=== PATIENT | male | born 1940 | race Caucasian/White ===

== ENCOUNTER 2016-11-19 08:04 | Inpatient (IN) | payer OTHER ==
[2016-10-25 09:07] VITALS: BMI 43.0
--- NOTE | 2016-11-10 13:34 | HISTORY & PHYSICAL EXAMINATION ---
DATE OF ADMISSION: 11/19/2016 SUBJECTIVE CHIEF COMPLAINT: The patient is a 76-year-old male who presents with left knee pain. He states that the symptoms have been chronic and nontraumatic in nature. The pain occurs constantly and described as aching, sharp and throbbing. The patient has failed conservative measures including cortisone injections, anti-inflammatories and physical therapy. He was scheduled for a left total knee arthroplasty with Dr. Harvey and would like to transfer care. 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 PAST SURGICAL HISTORY: Appendectomy, right total hip arthroplasty, left total hip arthroplasty, brain tumor. SOCIAL HISTORY: Denies alcohol use. Denies smoking or tobacco use. Denies IV or illegal drug use. He lives in a 2-story house. He is currently retired. FAMILY HISTORY: Noncontributory. ALLERGIES: No known drug allergies. MEDICATIONS: Norvasc 5 mg 1 tablet daily, Cardura 8 mg 1 tab daily, Lasix 40 mg 1 tab daily, naproxen 500 mg 1 tab 2 times a day, Detrol 2 mg 1 capsule daily, Lopressor, HCT 50 mg/25 mg 1 tablet daily, calcium 600 mg 1 tab daily, glucosamine chondroitin, Aspirin 81 mg 1 tablet daily, Travatan 0.004% eyedrops, instill 1 drop into affected eyes in the evening, vitamin B12, stool softener as needed, vitamin D3 2000 units daily. REVIEW OF SYSTEMS: He denies headaches, fevers, chills, double vision, blurry vision, sore throat, cough, chest pain, nausea, vomiting, diarrhea, constipation, numbness or tingling, tired, difficulty going to the bathroom, thoughts to harm herself or harm others or depression. He is positive for joint pain and joint stiffness of his left knee. OBJECTIVE: GENERAL APPEARANCE: The patient is a 76-year-old male who is sitting in no acute distress. He is well dressed, well nourished. He is awake, alert and oriented x3. VITAL SIGNS: He is 5 feet 8 inches tall, 279 pounds, blood pressure 130/84. HEAD, EYES, EARS, NOSE, AND THROAT: Normocephalic, atraumatic. Extraocular movements are intact. PERRLA. Mucosa was moist. No septal deviation. NECK: Supple with no lymphadenopathy, no JVD, no thyromegaly. HEART: Regular rate and rhythm with no murmurs or gallops. LUNGS: Clear to auscultation. No wheezing or rhonchi. ABDOMEN: Soft, nontender, nondistended. Normal bowel sounds, no hepatosplenomegaly. EXTREMITIES: Paying particular attention to the left lower extremity. He is able to extend his knee to 0 degrees and flex his knee to 110 degrees. He does have medial joint line tenderness. His ligaments are intact. NEUROLOGIC EXAMINATION: Cranial nerves II-XII were intact. Pulses were compared bilaterally and were equal. IMAGING: Four view x-rays demonstrate bone on bone with medial compartment with osteophyte formation and subchondral sclerosis. IMPRESSION: Left knee degenerative joint disease. PLAN: The patient is scheduled for a left total knee arthroplasty. The patient has failed conservative therapies including cortisone injections, anti-inflammatories and physical therapy. He would like to proceed with a left total knee arthroplasty. Risks and benefits were discussed with the patient and included but not limited to infection, DVT, pain, stiffness, need for revision surgeries, damage to blood vessels, damage to nerves, PE, and anesthesia risks were all discussed with the patient and he wishes to proceed. All questions were answered to his satisfaction. DVT prophylaxis will be aspirin 81 mg twice a day. He would like to go home with home health after his surgery. BENOIT
[2016-11-19] VITALS (8 sets, daily range): BP systolic 101–172; BP diastolic 63–95; PULSE 57–82; TEMP 36.2–36.7; O2SAT 95–99; Ht 170.2 cm; Wt 127.0 kg
[~2016-11-19] VITALS: Ht 170.2 cm; Wt 127.0 kg
[2016-11-19] MEDS: TRANEXAMIC ACID INJ 1,000 MG in SODIUM CHLORIDE 0.9% 100ML 100 ML IV SCH ×2 (06:30→10:45)
[~2016-11-19 08:04] MED LIST: AMLO-114 PO; ASPI-232 PO; BUPIVACAINE 0.25% 30 ML VIAL ONE; BUPIVACAINE 0.5 % 5 MG/1 ML PF 10ML VIAL ONE; CEFAZOLIN 3000 MG/65 ML D5W IV SCH; CLC100 PO; CLTP PO; CRD4 PO; CYAN500T PO; CeleBREX 200 MG CAP PO SCH; DEXAMETHASONE 4 MG TAB PO SCH; DTRSR4 PO; FAMOTIDINE 20 MG TAB PO SCH; FRS/40 PO; GABAPENTIN 300 MG CAP PO SCH; GLUCOSAMINE/CHOND PO; LACTATED RINGER'S 1000ML 1,000 ML IV SCH; LACTATED RINGER'S 1000ML 500 ML IV ONE; METO25TA56 PO; METOCLOPRAMIDE HCL 10 MG TAB PO SCH; NAPR500T3 PO; TRVOPS OPB; VITAMIN D PO
[2016-11-19] MEDS ORDERED: HYDROmorphone INJ 1 MG/ML SYR IV PRN (08:45)
[2016-11-19] MEDS ORDERED: PROMETHAZINE HCL INJ 12.5 MG in SODIUM CHLORIDE 0.9% 50ML 50 ML IV PRN (08:45)
[2016-11-19] MEDS ORDERED: ONDANSETRON INJ 2 MG/ML 2 ML VIAL IV PRN ×2 (08:45→13:30)
[2016-11-19] MEDS ORDERED: EpHEDrine SULFATE INJ 50 MG/ML AMP IV PRN (08:45)
[2016-11-19] MEDS ORDERED: ATROPINE SULFATE 0.1 MG/ML 5ML SYR IV PRN (08:45)
[2016-11-19] MEDS ORDERED: FENTANYL CITRATE INJ 50 MCG/1 ML 2 ML VIAL IV PRN (08:45)
[2016-11-19] MEDS ORDERED: PROPOFOL IV EMULSION 10 MG/ML 20 ML VIAL IV ONE (09:43)
[2016-11-19] MEDS ORDERED: FENTANYL CITRATE INJ 50 MCG/1 ML 2 ML VIAL ONE (09:43)
[2016-11-19] MEDS ORDERED: MIDAZOLAM HCL 1 MG/ML 2ML VIAL ONE (09:43)
--- NOTE | 2016-11-19 10:04 | History & Physical Bridge Note ---
H&P Re-Evaluation Bridge Note: I have examined the patient, reviewed the History & Physical and in the interval since the performance of the History & Physical I have noted the following changes of clinical significance: No changes noted
[2016-11-19] MEDS ORDERED: CeleBREX 200 MG CAP ONE (10:13)
[2016-11-19] MEDS ORDERED: GABAPENTIN 300 MG CAP PO ONE (10:13)
[2016-11-19] MEDS ORDERED: METOCLOPRAMIDE HCL 10 MG TAB PO ONE (10:13)
[2016-11-19] MEDS ORDERED: FAMOTIDINE 20 MG TAB ONE (10:13)
[2016-11-19] MEDS ORDERED: DEXAMETHASONE 4 MG TAB ONE (10:13)
[2016-11-19] MEDS ORDERED: CEFAZOLIN IV 3,000 MG/65 ML D5W IV ONE (10:14)
[2016-11-19] MEDS ORDERED: ROPIVACAINE 5MG/ML 30 ML 150 MG, BUPIVACAINE/EPINEPHR 0.5% MPF 30 ML, KETOROLAC TROMETH... INFIL SCH ×7 (10:30)
[2016-11-19] MEDS ORDERED: POVIDONE-IODINE OP SOLN 30 ML BTL ONE (10:35)
[2016-11-19] MEDS ORDERED: BACITRACIN 50000 UNIT VIAL ONE (10:35)
[2016-11-19] MEDS ORDERED: DiphenhydrAMINE HCL 50 MG/ML VIAL IV PRN (13:30)
[2016-11-19] MEDS ORDERED: SOD PHOSPHATE/SOD BIPHOSPHATE ENEMA 132 ML BTL PR PRN (13:30)
[2016-11-19] MEDS ORDERED: BISACODYL 10 MG SUPP PR PRN (13:30)
[2016-11-19] MEDS ORDERED: MAGNESIUM HYDROXIDE SUSP 30 ML UDC PO PRN (13:30)
[2016-11-19] MEDS ORDERED: ALUMINUM/MAGNESIUM/SIMETH (MAALOX MAX) 30 ML UDC PO PRN (13:30)
[2016-11-19] MEDS ORDERED: ZOLPIDEM TARTRATE 5 MG TAB PO PRN (13:30)
[2016-11-19] MEDS ORDERED: OXYSR10 PO (13:56)
[2016-11-19] MEDS ORDERED: RXC5 PO (13:56)
--- NOTE | 2016-11-19 13:58 | Anesthesiology Progress Note ---
Anesthesia Post Op Note Date & Time Nov 19, 2016 at 13:58 Vital Signs Pain Intensity: 0 Vital Signs Past 12 Hours Date Time Temp Pulse Resp B/P (MAP) Pulse Ox O2 Delivery O2 Flow Rate FiO2 11/19/16 13:50 58 20 159/87 98 Nasal Cannula 2 11/19/16 13:40 66 20 129/87 98 2 11/19/16 13:30 71 20 135/82 98 Oxymask 6 11/19/16 13:24 37.1 71 20 138/76 98 Oxymask 6 11/19/16 08:42 36.7 82 20 172/95 96 Room Air Notes Mental Status: alert / awake / arousable, participated in evaluation Pt Amnestic to Procedure: Yes Nausea / Vomiting: adequately controlled Pain: adequately controlled Airway Patency, RR, SpO2: stable & adequate BP & HR: stable & adequate Hydration State: stable & adequate Neuraxial Anesthesia: was administered, sensory block is resolving Anesthetic Complications: no major complications apparent Doing well. Pain well controlled. VSS
--- NOTE | 2016-11-19 13:58 | DIAGNOSTIC IMAGING REPORT ---
LEFT KNEE 1 OR 2 VIEWS ROUTINE HISTORY: 76 years-old Male AP/LATERAL IN PACU LEFT KNEE left knee total joint arthroplasty COMPARISON: None available TECHNIQUE: Portable AP and crosstable lateral views of the left knee FINDINGS: There has been interval left total knee arthroplasty with patellar resurfacing. No evidence of periprosthetic fracture or malalignment. Expected deep tissue air and soft tissue swelling seen about the knee. Vascular calcifications are noted. IMPRESSION: Left total knee arthroplasty and patellar resurfacing without complication identified. The above report was generated using voice recognition software. It may contain grammatical, syntax or spelling errors. Electronically signed by: Manuel Carpio M.D. 11/19/2016 1:56 PM Dictated Date/Time: 11/19/2016 1:55 PM
[2016-11-19] MEDS: D5W AND 1/2NSS + 20MEQ KCL 1,000 ML IV SCH (15:28)
--- NOTE | 2016-11-19 17:33 | [facility] Operative Report ---
Operative Report Operative Date Nov 19, 2016. Pre-Operative Diagnosis Left knee degenerative joint disease Post-Operative Diagnosis Left knee degenerative joint disease Procedure(s) Performed Left Total Knee Arthroplasty Surgeon Dr. Antoni Guzman Laborer Livestock Surgeon(s) Abi Prieto Pa-C Estimated Blood Loss 100 ml Findings As above Specimens a. left knee bone and tissue Drains none Anesthesia spinal Complication(s) None Disposition Recovery Room / PACU Indications 76-year-old male with long-standing degenerative joint disease left knee. Bone- on-bone medial compartment. His fell conservative measures including injection and anti-inflammatories. He wishes to proceed with left total knee arthroplasty. Description of Procedure Risks benefits and alternatives of surgery including but not limited to infection DVT pain stiffness need for surgery damage to blood vessels damage to nerves or risks of anesthesia were discussed with the patient and she wished to proceed. Patient was identified in the laterality was confirmed and marked. She received a preoperative antibiotic is also a spinal anesthetic and a abductor canal block. A well-padded tourniquet was applied and then the limb was prepped and draped in standard manner with ChloraPrep. The limb was exsanguinated and the tourniquet was inflated. I made a standard anterior incision. I sharply incised the skin then utilized Bovie electrocautery as well as the aqua mantis to achieve hemostasis. I made a medial parapatellar arthrotomy immobilized the patella laterally. I then excised the anterior horns of the medial and lateral meniscus as well as the infrapatellar fat pad. I elevated a portion of the MCL off of the tibia. I then pinned into place a patient-matched distal femoral cutting guide and made my distal femoral resection. I then pinned into place a size 8 5 in 1 cutting guide. I made my anterior, posterior and chamfer cuts. I then excised the cruciates and the remaining portions of the menisci. I then pinned into place a patient- matched tibial cutting guide and made my tibial resection. I then pinned into place a size 7 tibia utilizing alignment rods to confirm rotation. I then cut for the post. Utilizing a lamina director translation and then removed posterior osteophytes off the femur. I then placed a trial femur into position and cut for the trochlear component. I then sequentially trialed to size [9] polyethylene. There was good soft tissue balancing and range of motion with this polyethylene. I then prepared the patella with a freehand cut utilizing sagittal saw. I sized and drilled for a size 38 patella. There was good tracking to the patella no lateral release was needed. All the trial components were removed. The deep tissues were anesthetized with and ortho mix solution. Then with Simplex HV with gentamicin cement I cemented my definitive components. Definitive components, Cardona and Nephew Journey 2: Femur 8 Tibia 7 Poly 9 Patella 38 oval Betadine soak was performed. A deep drain was placed. The arthrotomy was closed with interrupted #1 Vicryl suture subcutaneous tissue was closed with interrupted 2-0 Vicryl suture and skin with anthony. Sterile dressings applied and the tourniquet was released. All needle and sponge counts were correct at the end of the procedure patient was transferred to the PACU in stable condition without apparent complication. The PA-C was necessary for assistance with procedure for assistance in positioning, prepping, draping, retraction and closure. I attest to the content of the Intraoperative Record and any orders documented therein. Any exceptions are noted below.
[2016-11-19] MEDS: KETOROLAC TROMETHAMINE 15 MG/ML VIAL IV. SCH ×2 (17:38→23:30)
[2016-11-19] MEDS: CEFAZOLIN IV 3,000 MG in DEXTROSE 5% 50ML 50 ML IV SCH (19:44)
[2016-11-19] MEDS: CALCIUM 600MG + VIT D 400 IU TAB PO SCH (20:50)
[2016-11-19] MEDS: METOPROLOL TARTRATE 25 MG TAB PO SCH (20:50)
[2016-11-19] MEDS: ASPIRIN 81 MG ECTAB PO SCH (20:51)
[2016-11-19] MEDS: SENNA 8.6 MG TAB PO SCH (20:51)
[2016-11-19] MEDS: ACETAMINOPHEN 500 MG TAB PO SCH (21:31)
[2016-11-20] VITALS (7 sets, daily range): BP systolic 113–153; BP diastolic 69–84; PULSE 47–60; TEMP 36.5–36.6; O2SAT 96–98
[2016-11-20] MEDS: D5W AND 1/2NSS + 20MEQ KCL 1,000 ML IV SCH ×2 (02:08→11:20)
[2016-11-20] MEDS: CEFAZOLIN IV 3,000 MG in DEXTROSE 5% 50ML 50 ML IV SCH (04:12)
[2016-11-20] MEDS: ACETAMINOPHEN 500 MG TAB PO SCH ×3 (05:46→20:49)
[2016-11-20] MEDS: KETOROLAC TROMETHAMINE 15 MG/ML VIAL IV. SCH ×2 (05:46→11:20)
[2016-11-20 06:07] LABS: HEMATOCRIT 38.9 % (42-52); MEAN CORPUSCULAR HEMOGLOBIN 29.3 pg (25-34); MEAN CORPUSCULAR HGB CONC 33.7 g/dl (32-36); MEAN PLATELET VOLUME 10.3 fL (7.4-10.4); PLATELET COUNT 139 K/uL (130-400); RED BLOOD COUNT 4.47 M/uL (4.7-6.1); WHITE BLOOD COUNT 15.19 K/uL (4.8-10.8)
[2016-11-20 06:45] LABS: BUN/CREATININE RATIO 21.9 (10-20); CALCIUM 7.6 mg/dl (8.5-10.1); CREATININE 0.98 mg/dl (0.60-1.40); POTASSIUM 4.4 mmol/L (3.5-5.1)
[2016-11-20] MEDS ORDERED: DEXAMETHASONE 4 MG TAB PO SCH (07:30)
--- NOTE | 2016-11-20 07:48 | Orthopedic Progress Note ---
Orthopedic Progress Note Date of Service Nov 20, 2016. Subjective Post OP Day: 1 (s/p Left TKA) Reports: feeling well, pain controlled w PO medications, Denies: complaints, chest pain, SOB, nausea / vomiting, light headedness, calf pain Objective calves soft nontender, N/V intact, capillary refill less than 2 sec., dressing C /D/I, A&O x3, toes mobile Date Time Temp Pulse Resp B/P (MAP) Pulse Ox O2 Delivery O2 Flow Rate FiO2 11/20/16 07:39 36.5 49 20 128/74 (92) 96 Room Air 11/20/16 03:05 36.6 60 17 146/84 (104) 97 Room Air 11/19/16 23:30 Room Air 11/19/16 22:48 36.3 59 16 101/63 (76) 95 Room Air 11/19/16 20:49 60 118/75 (89) 11/19/16 19:35 97 Room Air 11/19/16 19:24 36.4 11/19/16 17:08 36.3 63 18 149/85 (106) 96 Nasal Cannula 2.0 11/19/16 15:20 Nasal Cannula 2.0 11/19/16 15:15 36.2 58 18 144/80 (101) 99 Nasal Cannula 2.0 11/19/16 14:45 57 18 154/89 (110) 99 Nasal Cannula 2.0 11/19/16 14:33 98 Nasal Cannula 2.0 11/19/16 14:00 58 20 152/79 98 Nasal Cannula 2 11/19/16 13:50 58 20 159/87 98 Nasal Cannula 2 11/19/16 13:40 66 20 129/87 98 2 11/19/16 13:30 71 20 135/82 98 Oxymask 6 11/19/16 13:24 37.1 71 20 138/76 98 Oxymask 6 11/19/16 08:42 36.7 82 20 172/95 96 Room Air Laboratory Results 24 Hours: Test 11/20/16 05:42 Hematocrit 38.9 % Hemoglobin 13.1 g/dL Assessment & Plan Assessment: POD #1 s/p Left TKA -PT/OT -dvt proph with elvira/scd/asa -plan for d/c home with HHPT when stable -labs stable Past Medical History: Significant for osteoarthritis, hypertension, stroke after brain surgery. Discharge Planning Discharge Planning: home with home health DVT Prophylaxis: TEDs, SCDs, ASA Therapy: Physical Therapy
[2016-11-20] MEDS ORDERED: CLB200 PO (08:48)
[2016-11-20] MEDS ORDERED: ACET-24 PO (08:48)
[2016-11-20] MEDS ORDERED: ONDA8TAB6 PO (08:48)
[2016-11-20] MEDS: OXYCODONE HCL IR 5 MG TAB (IMMEDIATE RELEASE) PO PRN ×2 (08:48→23:54)
[2016-11-20] MEDS ORDERED: ASPEC81 PO (08:48)
[2016-11-20] MEDS: ASPIRIN 81 MG ECTAB PO SCH ×2 (08:49→20:49)
--- NOTE | 2016-11-20 08:49 | Discharge Instructions ---
Discharge Instructions Date of Service Nov 20, 2016. Admission Reason for Admission: Left Knee Osteoarthritis Discharge Discharge Diagnosis / Problem: left total knee replacement Discharge Goals Goal(s): Decrease discomfort, Improve function, Increase independence Activity Recommendations Activity Limitations: as noted below Weightbearing Status: Left weightbearing (as tolerated) . Instructions / Follow-Up Instructions / Follow-Up ACTIVITY RECOMMENDATIONS: SELF CARE INSTRUCTIONS AFTER TOTAL KNEE REPLACEMENT A. You may need to continue a physical therapy program after discharge from the hospital. There are several options available to you. Your doctor will assist you in selecting the best one for you. 1. An out-patient facility 2 to 3 times a week for therapy or home therapy. 2. Continue working on all exercises taught to you in the hospital. Your goals should be to increase bending of your knee to 90 degrees and beyond and to fully straighten your knee. B. You may progress at your own pace from walking with a walker or crutches to a cane; then to no assistive devices. C. Make walking a part of your daily routine. Be up as much as comfortable with rest periods throughout the day. Rest with leg elevation is very important. Use the ice wrap frequently for the first 3-4 weeks. D. There are no restrictions on activities. You may ride in a car, shop, participate in insulation engineman and all social activities. E. Wear the long elastic stockings (RONALD hose) 20 hours a day for 2 weeks after surgery. They can be removed several times a day for laundering and for a bath. F. You may shower, no tub baths until cleared by your doctor. SPECIAL CARE INSTRUCTIONS: VERY IMPORTANT TO READ AND REVIEW A. There are a few signs you need to watch for after you are home. Call [facility] [place] if you notice any of the followin. Increased severe knee pain. Some pain is expected especially when you exercise. 2. Increased swelling in your leg or knee; pain or swelling of the calf muscle in either lower leg. 3. Any fluid drainage from the incision. 4. Shortness of breath or chest pain. B. Please call [facility] at if you have any concerns or questions about your operation or recovery. The doctor or his nurse will return your call promptly. C. You must take antibiotics before dental work, bladder, bowel or other surgery. Your doctor will provide you with a permanent care to carry describing this precaution. IMPORTANT: * REMEMBER TO TAKE ASPIRIN, 81 MG, TWICE DAILY FOR 4 WEEKS UNLESS OTHERWISE DIRECTED. THIS IS YOUR BLOOD THINNER. * HIGH RISK PATIENTS MAY BE PRESCRIBED A STRONGER BLOOD THINNER. THIS WILL BE PROVIDED AT DISCHARGE. * CALL IF INCREASED PAIN, REDNESS, DRAINAGE OR FEVER GREATER THAT 101. * WEAR RONALD HOSE 20 HOURS PER DAY FOR 2 WEEKS. * YOU MAY HAVE A LARGE BAND-AID LIKE DRESSING (SILVERON). THIS WILL REMAIN ON YOUR INCISION FOR 7 DAYS, THEN CAN BE REMOVED. IF INCISION IS LEAKING THROUGH DRESSING, CALL THE OFFICE . FOLLOW UP VISIT: If appointment is not already scheduled: Please call [facility] to make a follow-up appointment for 2 weeks after your surgery at . Current Hospital Diet Patient's current hospital diet: Regular Diet Discharge Diet Recommended Diet: Regular Diet Procedures Procedures Performed: Left Total Knee Arthroplasty Pending Studies Studies pending at discharge: no Medical Emergencies . Who to Call and When: Medical Emergencies: If at any time you feel your situation is an emergency, please call [phone] immediately. . Non-Emergent Contact Non-Emergency issues call your: Primary Care Provider . "Provider Documentation" section prepared by Chin Camacho. . VTE Core Measure Inpt VTE Proph given/why not?: Other Anticoagulation (ASA 81mg po bid x 1 month ), T.EDaniel Begum, SCD's [place] Drug Monitoring Program Search Results: patient reviewed within database, no issues identified
[2016-11-20] MEDS: DOXAZosin MESYLATE TAB 4 MG TAB PO SCH (08:50)
[2016-11-20] MEDS: CALCIUM 600MG + VIT D 400 IU TAB PO SCH ×2 (08:50→20:49)
[2016-11-20] MEDS: AMLODIPINE BESYLATE 5 MG TAB PO SCH (08:51)
[2016-11-20] MEDS: PANTOprazole SOD 40 MG TAB PO SCH (08:51)
[2016-11-20] MEDS: CYANOCOBALAMIN 500 MCG TAB (VIT B-12) PO SCH (08:51)
[2016-11-20] MEDS: FUROSEMIDE 40 MG TAB PO SCH (08:51)
[2016-11-20] MEDS: METOPROLOL TARTRATE 25 MG TAB PO SCH ×3 (08:52→20:53)
[2016-11-20] MEDS: TOLTERODINE TARTRATE LA 4 MG CAPCR PO SCH (08:52)
[2016-11-20] MEDS: MULTIVITAMIN TAB PO SCH (08:52)
[2016-11-20] MEDS: CeleBREX 200 MG CAP PO SCH (20:49)
[2016-11-20] MEDS: SENNA 8.6 MG TAB PO SCH (21:10)
[2016-11-21] MEDS: ACETAMINOPHEN 500 MG TAB PO SCH (05:30)
[2016-11-21 06:03] VITALS: BP 158/81; PULSE 62; TEMP 36.3; O2SAT 97
--- NOTE | 2016-11-21 06:31 | Orthopedic Progress Note ---
Orthopedic Progress Note Date of Service Nov 21, 2016. Subjective Post OP Day: 2 Reports: feeling well, pain controlled w PO medications, Denies: complaints, chest pain, SOB, nausea / vomiting, light headedness, calf pain Objective calves soft nontender, N/V intact, capillary refill less than 2 sec., incision C /D/I, A&O x3, toes mobile Date Time Temp Pulse Resp B/P (MAP) Pulse Ox O2 Delivery O2 Flow Rate FiO2 11/21/16 06:03 36.3 62 16 158/81 (106) 97 Room Air 11/21/16 00:00 Room Air 11/20/16 23:05 36.5 59 17 153/84 (107) 98 Room Air 11/20/16 19:00 Room Air 11/20/16 15:50 36.5 47 18 113/69 (84) 97 Room Air 11/20/16 15:20 Room Air 11/20/16 11:24 36.5 49 22 148/76 (100) 96 Room Air 11/20/16 10:27 60 98 11/20/16 07:39 36.5 49 20 128/74 (92) 96 Room Air 11/20/16 07:15 97 Room Air Assessment & Plan Assessment: POD #2 s/p Left TKA -PT/OT -dvt proph with elvira/scd/asa -plan for d/c home with HHPT after PT today. -labs stable Past Medical History: Significant for osteoarthritis, hypertension, stroke after brain surgery. Discharge Planning Discharge Planning: home with home health DVT Prophylaxis: TEDs, SCDs, ASA Therapy: Physical Therapy
[2016-11-21] MEDS: OXYCODONE HCL IR 5 MG TAB (IMMEDIATE RELEASE) PO PRN (07:25)
[2016-11-21] MEDS: AMLODIPINE BESYLATE 5 MG TAB PO SCH (07:26)
[2016-11-21] MEDS: METOPROLOL TARTRATE 25 MG TAB PO SCH (07:27)
[2016-11-21] MEDS: FUROSEMIDE 40 MG TAB PO SCH (07:27)
[2016-11-21] MEDS: DOXAZosin MESYLATE TAB 4 MG TAB PO SCH (07:28)
[2016-11-21] MEDS: TOLTERODINE TARTRATE LA 4 MG CAPCR PO SCH (07:28)
[2016-11-21] MEDS: CYANOCOBALAMIN 500 MCG TAB (VIT B-12) PO SCH (07:29)
[2016-11-21] MEDS: MULTIVITAMIN TAB PO SCH (07:29)
[2016-11-21] MEDS: PANTOprazole SOD 40 MG TAB PO SCH (07:29)
[2016-11-21 07:30] VITALS: O2SAT 97
[2016-11-21] MEDS: ASPIRIN 81 MG ECTAB PO SCH (08:58)
[2016-11-21] MEDS: CALCIUM 600MG + VIT D 400 IU TAB PO SCH (08:58)
[2016-11-21] MEDS: CeleBREX 200 MG CAP PO SCH (08:58)
[2016-11-21 09:50] VITALS: BP 115/69; PULSE 69; O2SAT 98
[2016-11-21 10:51] VITALS: BP 115/69; PULSE 69; TEMP 36.3; O2SAT 98
--- NOTE | 2016-11-30 14:06 | DISCHARGE SUMMARY ---
DISCHARGE DIAGNOSIS: Degenerative joint disease left knee. SECONDARY DIAGNOSIS: Morbid obesity. CONSULTS: None. COMPLICATIONS: None. PROCEDURE: The patient underwent a left total knee arthroplasty with Dr. Guzman on 11/19/2016. BRIEF HISTORY: Please see previously dictated history and physical. HOSPITAL SUMMARY: The patient was admitted on the above day for the above procedure. Procedure went without complication. Postop day 1, the patient was feeling well without complaints. He denied chest pain or shortness of breath. Vital signs were stable. He was afebrile. Dressing was clean, dry and intact. He was neurovascularly intact. Calves were soft and nontender. Hemoglobin was 13.1. The patient began physical therapy per protocol. Postop day 2, the patient continued to improve. Vital signs were stable. He was afebrile. Dressing was clean, dry and intact. He was neurovascularly intact. Calves were soft and nontender. He continued to progress with therapy and was discharged home later that day in stable condition. For further review please see the chart. Lab, x-ray data and discharge instructions as per chart.
[2016-12-07] MEDS ORDERED: ACET-1256 PO (08:17)
[2016-12-07] MEDS ORDERED: CLB/200 PO (08:39)
[2016-12-07] MEDS ORDERED: ASPI81TA28 PO (08:39)
[2016-12-07] MEDS ORDERED: CHOL2000 PO (08:40)
== END 2016-11-21 11:18 | disposition home health service (06) | DRG 470 ==
LOC: C.ACU 08:04 → C.3E 10:00 → ENRESERV 13:54
PROVIDERS: ADMIT Orthopaedic Surgery; ATTEND Orthopaedic Surgery
PROC: 0SRD0J9 Replacement of Left Knee Joint with Synthetic Substitute, Cemented, Open Approach (ICD-10-PCS; principal; 2016-11-19 10:30)
DX: M17.12 Unilateral primary osteoarthritis, left knee (principal); Z68.41 Body mass index [BMI] 40.0-44.9, adult; I10 Essential (primary) hypertension; E66.01 Morbid (severe) obesity due to excess calories; Z96.643 Presence of artificial hip joint, bilateral; Z87.891 Personal history of nicotine dependence; Z86.73 Personal history of transient ischemic attack (TIA), and cerebral infarction without residual deficits; Z86.011 Personal history of benign neoplasm of the brain; Z79.82 Long term (current) use of aspirin; Z79.899 Other long term (current) drug therapy; Z79.1 Long term (current) use of non-steroidal anti-inflammatories (NSAID)

== ENCOUNTER → 2017-02-02 | Day surgery (SDC) | payer OTHER ==
[2017-01-27 14:32] VITALS: Ht 172.7 cm; Wt 118.6 kg
[~2017-02-02] VITALS: Ht 172.7 cm; Wt 118.6 kg
[~2017-02-02] MED LIST changes: +500ML BSS 0.3ML EPI 1:1000PF IRRIG ONE; +ACETAMINOPHEN 325 MG TAB PO PRN; +AMVISC PLUS 0.8ML SYRINGE INT OCU ONE; +ASPCH81X PO; -ASPI-232 PO; +ATROPINE SULFATE 0.1 MG/ML 5ML SYR IV PRN; +AcetaZOLAMIDE 250 MG TAB PO SCH; +BETAXOLOL HCL 0.25% OP SUSP PER DROP CHARGE OPR SCH; +BRIMONIDINE TART 0.2% OP SOLN PER DROP CHARGE ONE; +BSS FLUSH ONE; -BUPIVACAINE 0.25% 30 ML VIAL ONE; -BUPIVACAINE 0.5 % 5 MG/1 ML PF 10ML VIAL ONE; +CALC-354 PO; -CEFAZOLIN 3000 MG/65 ML D5W IV SCH; +CHOL20009 PO; -CLC100 PO; -CLTP PO; -CRD4 PO; -CYAN500T PO; +CYAN500T13 PO; -CeleBREX 200 MG CAP PO SCH; +DETROL LA PO; -DEXAMETHASONE 4 MG TAB PO SCH; +DOCU100C31 PO; +DOXA4TAB2 PO; -DTRSR4 PO; +ENDOCOAT 0.85ML SYRINGE INT OCU ONE; +EpHEDrine SULFATE INJ 50 MG/ML AMP IV PRN; +EpINEphrine INJ 1MG/ML AMP 1 MG/ML AMP ONE; -FAMOTIDINE 20 MG TAB PO SCH; +FLUO10CA48 PO; -GABAPENTIN 300 MG CAP PO SCH; -GLUCOSAMINE/CHOND PO; -LACTATED RINGER'S 1000ML 500 ML IV ONE; +LIDOCAINE 4% OP SOLN DROP CHARGE ONE; +LIDOCAINE 4% OP SOLN DROP CHARGE OPR SCH; +LIDOCAINE HCL 1% MPF 2 ML VIAL ONE; -METOCLOPRAMIDE HCL 10 MG TAB PO SCH; +MIDAZOLAM HCL 1 MG/ML 2ML VIAL ONE; +MIX: 4ML BSS 1ML EPI 1:1000 PF INSTIL ONE; +MOXIFLOXACIN OPH SOLN PER DROP CHARGE ONE; +NAPR-1169 PO; -NAPR500T3 PO; +OCUCOAT 1 ML SOLN IO ONE; +PHENYLEPHRINE HCL 10% OP SOLN PER DROP CHARGE OPL ONE; +POVIDONE-IODINE OP SOLN 30 ML BTL ONE; +PRLSR20 PO; +PROPARACAINE 0.5% OP SOLN PER DROP CHARGE OPR SCH; +TOBRAMYCIN/DEXAMETHASONE OPH OINT PER APPLN CHARGE ONE; +TRAV0.00 OPB; -TRVOPS OPB; -VITAMIN D PO
[2017-02-02] MEDS: PHENYLEPHRINE HCL 2.5% OP SOLN PER DROP CHARGE OPR SCH ×2 (09:59→10:04)
[2017-02-02] MEDS: TROPICAMIDE 1% OP SOLN PER DROP CHARGE OPR SCH ×2 (10:00→10:05)
[2017-02-02] MEDS: CYCLOPENTOLATE HCL 1% OP SOLN PER DROP CHARGE OPR SCH ×2 (10:01→10:06)
[2017-02-02] MEDS: MOXIFLOXACIN OPH SOLN PER DROP CHARGE OPR SCH ×2 (10:02→10:13)
--- NOTE | 2017-02-02 10:43 | Discharge Instructions-SurgCtr ---
Discharge Instructions Date of Service Feb 02, 2017. Visit Reason for Visit: Cataract Right Eye Discharge Discharge Diagnosis / Problem: lens implant right eye Discharge Goals Goal(s): Improve function Activity Recommendations Activity Limitations: resume your previous activity Lifting Limitations: no more than 10 pounds Exercise/Sports Limitations: gradually increase as tolerated May Resume Sexual Activity: when tolerated Shower/Bathe: tomorrow Driving or Machine Use: resume 1 day after discharge Anesthesia . Post Anesthesia Instructions: If you have had General Anesthesia or IV Sedation: * Do not drive today. * Resume driving when surgeon permits. * Do not make important decisions or sign legal documents today. * Call surgeon for: 1. Temperature elevations greater than 101 degrees F. 2. Uncontrollable pain. 3. Excessive bleeding. 4. Persistent nausea and vomiting. 5. Medication intolerance (nausea, vomiting or rash). * For nausea and vomiting use only clear liquids such as: tea, soda, bouillon until nausea subsides, then gradually increase diet as tolerated. * If you have any concerns or questions, call your surgeon's office. If physician is unavailable and it is an emergency, call 911 or go to the nearest emergency room. . Instructions / Follow-Up Instructions / Follow-Up ACTIVITY RECOMMENDATIONS: * Light activities. * Mild irritation and blurred vision are common for the first few days. * You may walk outside, read, watch television. * Redness around the white part of the eye is common. MEDICATIONS: Resume previous medications unless instructed otherwise by your surgeon. * Take white Diamox (Acetazolamide) tablet at 2 pm today. Start all eye drops at 2 pm today: * Eye drops (today and tomorrow): Durezol - one drop in operative eye every 3 hours while awake Ofloxacin - one drop in operative eye every 3 hours while awake Continue Glaucoma Drop TravatanZ, in Left Eye as directed. SPECIAL CARE INSTRUCTIONS: * Tape plastic shield over eye to sleep at night. Call your doctor at with any concerns or problems. FOLLOW UP VISIT: Follow-up with Dr Granado at [place] office as scheduled. Diet Recommendations Home Diet: no limitations Procedures Procedures Performed: Right Cataract Phacoemulsification With Intraocular Lens Implant Pending Studies Studies pending at discharge: no Medical Emergencies . Who to Call and When: Medical Emergencies: If at any time you feel your situation is an emergency, please call 911 immediately. . Non-Emergent Contact Non-Emergency issues call your: Business Test Analyst Call Non-Emergent contact if: your pain is not controlled [phone] . . "Provider Documentation" section prepared by Chava Granado. .
--- NOTE | 2017-02-02 10:47 | [facility] Operative Report ---
Operative Report Date of Service Feb 02, 2017. Operative Report 1. PREOPERATIVE DIAGNOSIS: Senile nuclear cataract, right eye. 2. POSTOPERATIVE DIAGNOSIS: Senile nuclear cataract, right eye. 3. PROCEDURE: Phacoemulsification of right cataract with posterior chamber lens implant, type [employer]ch [employer], model MX60, power +19.0 diopters. ANESTHESIA: Local standby. SURGEON: Dr. Granado. COMPLICATIONS: None. OPERATING TIME: 10 minutes. 4. OPERATION AND FINDINGS: DESCRIPTION OF PROCEDURE: The right pupil was dilated. The anesthetic was administered using a topical technique. The right eye was prepped and draped. A speculum was placed. A clear corneal incision was formed. The chamber was filled with Amvisc Plus and Endocoat. Epinephrine solution was used. A paracentesis was placed. A capsulorrhexis was performed. The nucleus was hydrodissected. The lens was removed with phacoemulsification. Time was 3.01 seconds. The aspiration unit was used to remove the cortex. The capsule was filled with Amvisc Plus. The lens implant was folded and placed into the capsule. The incisions were hydrated. A second astigmatic incision was placed at the limbus directly across from the original. The Amvisc was aspirated. The wounds were secure. The chamber was deep. The pupil was round. Brimonidine, TobraDex ointment and Vigamox solution were placed. The speculum was removed. The patient was returned to the Recovery Room in stable condition. I attest to the content of the Intraoperative Record and any orders documented therein. Any exceptions are noted below. The scribe's documentation has been prepared in my presence, under my direction and personally reviewed by me in its entirety. I confirm that the note above accurately reflects all work, treatment, procedures, and medical decision making performed by me. I personally scribed for Chava Granado M.D. (RAE) on 02/02/17 at 10:47. Electronically submitted by Kacey SOLIS).
--- NOTE | 2017-02-02 11:11 | Anesthesiology Progress Note ---
Anesthesia Post Op Note Date & Time Feb 02, 2017 at 11:11 Vital Signs Pain Intensity: 0 Vital Signs Past 12 Hours Date Time Temp Pulse Resp B/P (MAP) Pulse Ox O2 Delivery O2 Flow Rate FiO2 02/02/17 10:48 36.3 52 16 163/78 (106) 96 Room Air 02/02/17 09:42 36.6 49 12 185/84 (117) 97 Room Air Notes Mental Status: alert / awake / arousable, participated in evaluation Nausea / Vomiting: adequately controlled Pain: adequately controlled Airway Patency, RR, SpO2: stable & adequate BP & HR: stable & adequate Hydration State: stable & adequate Anesthetic Complications: no major complications apparent
[2017-02-02 11:15] VITALS: BP 155/81; PULSE 47; TEMP 36.3; O2SAT 95
== END | disposition home or self-care (01) ==
LOC: X.SURG 08:44
PROVIDERS: ATTEND Specialist
DX: Z96.649 Presence of unspecified artificial hip joint (principal); I10 Essential (primary) hypertension; E66.9 Obesity, unspecified; Z86.73 Personal history of transient ischemic attack (TIA), and cerebral infarction without residual deficits; H25.11 Age-related nuclear cataract, right eye; Z90.89 Acquired absence of other organs; Z96.659 Presence of unspecified artificial knee joint